=== PATIENT | female | born 2000 | race Caucasian/White ===

== ENCOUNTER 2024-11-07 17:00 | Emergency (ER) | payer OTHER, SELFPAY ==
[2024-11-07 17:03] VITALS: BP 113/87; PULSE 73; TEMP 36.6; O2SAT 100; BMI 26.6
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
[2024-11-07 17:27] LABS: HCG Qualitative Urine* NEGATIVE (NEGATIVE); Internal Control Within Normal Limits
[2024-11-07] MEDS: KETOROLAC TROMETHAMINE 30 MG/ML VIAL IM (17:58)
[2024-11-07] MEDS: ORPHENADRINE 60 MG/ 2 ML VIAL IM (17:58)
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
[2024-11-07] MEDS: ONDANSETRON 4 MG RAPDIS TABLET SL (19:24)
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
[2024-11-07 20:47] VITALS: BP 130/110; PULSE 82; O2SAT 99
== END 2024-11-07 20:47 | disposition home or self-care (01) ==
PROVIDERS: Emergency Medicine; Emergency Provider Emergency Medicine
DX: T14.8XXA Other injury of unspecified body region, initial encounter (principal); V48.5XXA Car driver injured in noncollision transport accident in traffic accident, initial encounter
CPT/HCPCS: 70450; 72125; 73030; 73610; 73630; 74176; 84703; 96372; 99285; J1885; J2360; Q0162